=== PATIENT | female | born 1980 | race Caucasian/White ===

== ENCOUNTER 2023-12-23 11:47 | Inpatient (IN) | payer OTHER ==
[2023-12-23 12:43] VITALS: BMI 47.0
[2023-12-23] MEDS ORDERED: BENZOCAINE/MENTHOL (CHLORASEPTIC ) LOZENGE MM PRN (13:04)
[2023-12-23] MEDS ORDERED: MAGNESIUM HYDROX 2400MG/30ML ORAL SUSPENSION 30 ML CUP PO PRN (13:04)
[2023-12-23] MEDS ORDERED: hydrOXYzine PAMOATE 25 MG CAPSULE (FP) PO PRN (13:04)
[2023-12-23] MEDS ORDERED: NALOXONE HCL (KLOXXADO) 8 MG SPRAY NS PRN (13:04)
[2023-12-23] MEDS ORDERED: METHOCARBAMOL 500 MG TABLET PO PRN (13:04)
[2023-12-23] MEDS ORDERED: IBUPROFEN 400 MG TABLET (FP) PO PRN (13:04)
[2023-12-23] MEDS ORDERED: LORazepam 1 MG TABLET PO PRN (13:04)
[2023-12-23] MEDS ORDERED: BISMUTH SUBSALICYLATE 524 MG/30 ML PO PRN (13:04)
[2023-12-23] MEDS ORDERED: LOPERAMIDE HCL 2 MG CAPSULE PO PRN (13:04)
[2023-12-23] MEDS ORDERED: POLYETHYLENE GLYCOL (HEALTHYLAX) 3350 17 GM PACKET PO PRN (13:04)
[2023-12-23] MEDS ORDERED: BENZONATATE 200 MG CAPSULE PO PRN (13:04)
[2023-12-23] MEDS ORDERED: guaiFENesin 600 MG TABLET.ER (FP) PO PRN (13:04)
[2023-12-23] MEDS ORDERED: NALOXONE HCL 0.4 MG/ML VIAL IM PRN (13:04)
[2023-12-23] MEDS ORDERED: MAG HYDROX/AL HYDROX/SIMETH 30 ML UNIT-DOSE CUP PO PRN (13:04)
[2023-12-23] MEDS ORDERED: ONDANSETRON *ODT* 4 MG TABLET SL PRN (13:04)
[2023-12-23] MEDS ORDERED: IBUPROFEN 600 MG TABLET (FP) PO PRN (13:04)
[2023-12-23] MEDS ORDERED: DICYCLOMINE HCL 10 MG CAPSULE PO PRN (13:04)
[2023-12-23] MEDS ORDERED: ACETAMINOPHEN 325 MG TABLET (FP) PO PRN (13:04)
[2023-12-23] MEDS ORDERED: PRENATAL VITAMINS W/ FOLIC ACID TABLET (FP) PO ONE (14:32)
[2023-12-23] MEDS ORDERED: NICOTINE 14 MG/24 HOURS TOPICAL PATCH TD ONE (14:32)
[2023-12-23] MEDS: NICOTINE 14 MG/24 HOURS TOPICAL PATCH TD SCH (14:36)
[2023-12-23] MEDS: PRENATAL VITAMINS W/ FOLIC ACID TABLET (FP) PO SCH (14:36)
[2023-12-23] MEDS: NICOTINE POLACRILEX 4 MG GUM BUC PRN ×2 (15:54→22:37)
[2023-12-23] MEDS: LORazepam 2 MG TABLET PO SCH ×2 (17:52→22:34)
[2023-12-23] MEDS ORDERED: ALBUTEROL SO4 HFA INHALER IH PRN (21:12)
[2023-12-23] MEDS: THIAMINE HCL 100 MG TABLET (FP) PO SCH (22:33)
[2023-12-23] MEDS: MELATONIN 5 MG TABLETS PO SCH (22:33)
[2023-12-23] MEDS ORDERED: PATIENT'S OWN MEDICATION (NON-FORMULARY) (Mometasone Furoate [Asmanex] 220 MCG Aer.Pow.Ba) IH PRN (22:55)
[2023-12-23] MEDS: DOCUSATE SODIUM 100 MG CAPSULE (FP) PO SCH (23:00)
[2023-12-23] MEDS: CEPHALEXIN MONOHYDRATE 500 MG CAPSULE (UD) PO SCH (23:00)
[2023-12-24] MEDS: LORazepam 2 MG TABLET PO SCH ×4 (06:00→22:32)
[2023-12-24] MEDS: PANTOPRAZOLE 40 MG TABLET PO SCH (06:03)
[2023-12-24] MEDS: GABAPENTIN 300 MG CAPSULE PO SCH ×3 (06:45→22:32)
[2023-12-24] MEDS ORDERED: methaDONE HCL 10 MG TABLET PO SCH (08:45)
[2023-12-24] MEDS: PRENATAL VITAMINS W/ FOLIC ACID TABLET (FP) PO SCH (10:23)
[2023-12-24] MEDS: DOCUSATE SODIUM 100 MG CAPSULE (FP) PO SCH ×2 (10:23→22:31)
[2023-12-24] MEDS: CEPHALEXIN MONOHYDRATE 500 MG CAPSULE (UD) PO SCH ×4 (10:23→22:30)
[2023-12-24] MEDS: FUROSEMIDE 40 MG TABLET (FP) PO SCH (10:23)
[2023-12-24] MEDS: NICOTINE 14 MG/24 HOURS TOPICAL PATCH TD SCH (10:23)
[2023-12-24] MEDS: NICOTINE POLACRILEX 4 MG GUM BUC PRN (10:24)
[2023-12-24] MEDS: ESCITALOPRAM OXALATE 20 MG TABLET PO SCH (11:00)
[2023-12-24] MEDS: lamoTRIgine 100 MG TABLET PO SCH ×2 (11:02→22:31)
[2023-12-24] MEDS: MINOCYCLINE HCL 100 MG PO SCH ×3 (11:03→22:32)
[2023-12-24] MEDS: PATIENT'S OWN MEDICATION (NON-FORMULARY) (Meloxicam 15 MG Tablet) PO SCH (11:05)
[2023-12-24] MEDS: MOMETASONE FUROATE 220 MCG/IH INHALER IH SCH ×2 (12:28→22:27)
[2023-12-24] MEDS: GABAPENTIN 400 MG CAPSULE PO SCH (22:30)
[2023-12-24] MEDS: BACLOFEN 10 MG TABLET (FP) PO SCH (22:30)
[2023-12-24] MEDS: MELATONIN 5 MG TABLETS PO SCH (22:31)
[2023-12-24] MEDS: SENNOSIDES 8.6MG TABLET (FP) PO SCH (22:31)
[2023-12-24] MEDS: THIAMINE HCL 100 MG TABLET (FP) PO SCH (22:32)
[2023-12-25] MEDS: GABAPENTIN 300 MG CAPSULE PO SCH ×3 (05:51→18:50)
[2023-12-25] MEDS: LORazepam 1 MG TABLET PO SCH ×4 (05:52→22:20)
[2023-12-25] MEDS: PANTOPRAZOLE 40 MG TABLET PO SCH (06:16)
[2023-12-25] MEDS: NICOTINE POLACRILEX 4 MG GUM BUC PRN ×4 (09:21→22:21)
[2023-12-25] MEDS: MOMETASONE FUROATE 220 MCG/IH INHALER IH SCH ×2 (10:18→22:19)
[2023-12-25] MEDS: CEPHALEXIN MONOHYDRATE 500 MG CAPSULE (UD) PO SCH ×4 (10:19→22:20)
[2023-12-25] MEDS: PATIENT'S OWN MEDICATION (NON-FORMULARY) (Meloxicam 15 MG Tablet) PO SCH (10:19)
[2023-12-25] MEDS: NICOTINE 14 MG/24 HOURS TOPICAL PATCH TD SCH (10:19)
[2023-12-25] MEDS: PRENATAL VITAMINS W/ FOLIC ACID TABLET (FP) PO SCH (10:19)
[2023-12-25] MEDS: MINOCYCLINE HCL 100 MG PO SCH ×2 (10:19→22:19)
[2023-12-25] MEDS: FUROSEMIDE 40 MG TABLET (FP) PO SCH (10:19)
[2023-12-25] MEDS: DOCUSATE SODIUM 100 MG CAPSULE (FP) PO SCH ×2 (10:19→22:20)
[2023-12-25] MEDS: ESCITALOPRAM OXALATE 20 MG TABLET PO SCH (10:19)
[2023-12-25] MEDS: lamoTRIgine 100 MG TABLET PO SCH ×2 (10:20→22:20)
[2023-12-25 14:40] LABS: POTASSIUM 4.7 mmol/L (3.5-5.1)
[2023-12-25 14:42] LABS: CALCIUM 8.7 mg/dL (8.5-10.1)
[2023-12-25 14:43] LABS: ALBUMIN 3.5 g/dl (3.4-5.0)
[2023-12-25 14:46] LABS: CREATININE 0.8 mg/dL (0.55-1.3)
[2023-12-25 14:47] LABS: TOT PROT 7.2 g/dl (6.4-8.2)
[2023-12-25 14:48] LABS: BILIRUBIN,TOTAL 0.3 mg/dL (0.2-1)
[2023-12-25] MEDS ORDERED: GABAPENTIN 300 MG CAPSULE PO SCH (16:45)
[2023-12-25] MEDS: BACITRACIN ZINC 15 GM TUBE TOPICAL OINTMENT TP SCH (18:51)
[2023-12-25] MEDS: MELATONIN 5 MG TABLETS PO SCH (22:19)
[2023-12-25] MEDS: GABAPENTIN 400 MG CAPSULE PO SCH (22:20)
[2023-12-25] MEDS: SENNOSIDES 8.6MG TABLET (FP) PO SCH (22:20)
[2023-12-25] MEDS: BACLOFEN 10 MG TABLET (FP) PO SCH (22:20)
[2023-12-25] MEDS: THIAMINE HCL 100 MG TABLET (FP) PO SCH (22:20)
[2023-12-26] MEDS ORDERED: LORazepam 0.5 MG TABLET PO PRN
[2023-12-26] MEDS: LORazepam 0.5 MG TABLET PO SCH ×4 (05:48→22:16)
[2023-12-26] MEDS: PANTOPRAZOLE 40 MG TABLET PO SCH (06:03)
[2023-12-26] MEDS: GABAPENTIN 300 MG CAPSULE PO SCH ×3 (06:03→16:30)
[2023-12-26] MEDS: MINOCYCLINE HCL 100 MG PO SCH ×2 (10:15→22:11)
[2023-12-26] MEDS: PATIENT'S OWN MEDICATION (NON-FORMULARY) (Meloxicam 15 MG Tablet) PO SCH (10:15)
[2023-12-26] MEDS: BACITRACIN ZINC 15 GM TUBE TOPICAL OINTMENT TP SCH (10:16)
[2023-12-26] MEDS: CEPHALEXIN MONOHYDRATE 500 MG CAPSULE (UD) PO SCH ×4 (10:16→22:12)
[2023-12-26] MEDS: MOMETASONE FUROATE 220 MCG/IH INHALER IH SCH ×2 (10:16→22:11)
[2023-12-26] MEDS: lamoTRIgine 100 MG TABLET PO SCH ×2 (10:16→22:14)
[2023-12-26] MEDS: PRENATAL VITAMINS W/ FOLIC ACID TABLET (FP) PO SCH (10:16)
[2023-12-26] MEDS: ESCITALOPRAM OXALATE 20 MG TABLET PO SCH (10:16)
[2023-12-26] MEDS: FUROSEMIDE 40 MG TABLET (FP) PO SCH (10:16)
[2023-12-26] MEDS: DOCUSATE SODIUM 100 MG CAPSULE (FP) PO SCH ×2 (10:16→22:13)
[2023-12-26] MEDS: NICOTINE 14 MG/24 HOURS TOPICAL PATCH TD SCH (10:17)
[2023-12-26] MEDS: NICOTINE POLACRILEX 4 MG GUM BUC PRN ×2 (17:38→22:16)
[2023-12-26] MEDS: SENNOSIDES 8.6MG TABLET (FP) PO SCH (22:12)
[2023-12-26] MEDS: MELATONIN 5 MG TABLETS PO SCH (22:12)
[2023-12-26] MEDS: THIAMINE HCL 100 MG TABLET (FP) PO SCH (22:13)
[2023-12-26] MEDS: GABAPENTIN 400 MG CAPSULE PO SCH (22:15)
[2023-12-26] MEDS: BACLOFEN 10 MG TABLET (FP) PO SCH (22:15)
[2023-12-27] MEDS ORDERED: LORazepam 0.5 MG TABLET PO ONE (05:00)
[2023-12-27] MEDS: PANTOPRAZOLE 40 MG TABLET PO SCH (06:29)
[2023-12-27] MEDS: GABAPENTIN 300 MG CAPSULE PO SCH (06:29)
[2023-12-27] MEDS: NICOTINE POLACRILEX 4 MG GUM BUC PRN (08:13)
[2023-12-27 09:10] VITALS: BP 141/83; PULSE 71; RESP 16; TEMP 97.3
[2023-12-27] MEDS: MOMETASONE FUROATE 220 MCG/IH INHALER IH SCH (09:48)
[2023-12-27] MEDS: PRENATAL VITAMINS W/ FOLIC ACID TABLET (FP) PO SCH (09:49)
[2023-12-27] MEDS: CEPHALEXIN MONOHYDRATE 500 MG CAPSULE (UD) PO SCH (09:49)
[2023-12-27] MEDS: MINOCYCLINE HCL 100 MG PO SCH (09:49)
[2023-12-27] MEDS: DOCUSATE SODIUM 100 MG CAPSULE (FP) PO SCH (09:49)
[2023-12-27] MEDS: FUROSEMIDE 40 MG TABLET (FP) PO SCH (09:49)
[2023-12-27] MEDS: ESCITALOPRAM OXALATE 20 MG TABLET PO SCH (09:49)
[2023-12-27] MEDS: PATIENT'S OWN MEDICATION (NON-FORMULARY) (Meloxicam 15 MG Tablet) PO SCH (09:50)
[2023-12-27] MEDS: lamoTRIgine 100 MG TABLET PO SCH (09:51)
[2023-12-27] MEDS: BACITRACIN ZINC 15 GM TUBE TOPICAL OINTMENT TP SCH (09:53)
== END 2023-12-27 09:52 | disposition home or self-care (01) | DRG 773 ==
LOC: YASAS 11:47 → Y3N 13:33
PROVIDERS: ADMIT Allergy & Immunology; ATTEND Allergy & Immunology
PROC: HZ2ZZZZ Detoxification Services for Substance Abuse Treatment (ICD-10-PCS; principal; 2023-12-23)
DX: F13.230 Sedative, hypnotic or anxiolytic dependence with withdrawal, uncomplicated (principal); F11.20 Opioid dependence, uncomplicated; F17.210 Nicotine dependence, cigarettes, uncomplicated; F31.81 Bipolar II disorder; F41.9 Anxiety disorder, unspecified; F43.10 Post-traumatic stress disorder, unspecified; G62.9 Polyneuropathy, unspecified; L03.113 Cellulitis of right upper limb; J41.0 Simple chronic bronchitis; I10 Essential (primary) hypertension; Z62.810 Personal history of physical and sexual abuse in childhood; Z63.8 Other specified problems related to primary support group
CPT/HCPCS: 36415; 80053; 80307; 81025; 87635; 87811; 93005; 93010; J0475